=== PATIENT | female | born 1950 | race Caucasian/White ===

== ENCOUNTER 2017-04-16 20:55 | Emergency (ER) | payer OTHER ==
[~2017-04-16] VITALS: Ht 167.6 cm; Wt 80.6 kg
[~2017-04-16 20:55] MED LIST: DEPAKOTE500 MG PO; MEDROL; MEDROL 2 MG TAB2 MG PO; MIRALAX17 GM PO; PERCOCET 5/31 TABLET PO; PROZAC40 MG PO; ROBAXIN; ROBAXIN500 MG; prilosec
[2017-04-16 21:54] LABS: HEMATOCRIT 42.2 % (36.0-46.0); MCH 30.3 PG (29.0-34.0); MCHC 32.7 G/DL (30.0-36.0); MCV 92.7 FL (83-99); MEAN PLAT.VOLUME 9.1 uM^3 (9.5-12.4); PLATELET COUNT 193 K/uL (156-360); RBC DIS.WIDTH-CV 13.2 % (11.8-14.6); RBC DIS.WIDTH-SD 44.5 % (39-53); RED BLOOD COUNT 4.55 M/uL (3.80-5.20)
[2017-04-16 22:01] LABS: INTER. NORMALIZED RATIO 0.9
[2017-04-16 22:03] LABS: CHLORIDE 106 mEq/L (99-109); SODIUM 142 mEq/L (136-147)
[2017-04-16 22:06] LABS: GLUCOSE 79 mg/dL (70-99)
[2017-04-16 22:07] LABS: ANION GAP 8 MEQ/L (2-14); TOTAL BILIRUBIN 0.3 mg/dL (0.0-1.0)
[2017-04-16 22:09] LABS: ALKALINE PHOSPHATASE 95 IU/L (3-129); GFR ESTIMATE (CALCULATED) > 59 mL/min/
[2017-04-16 22:10] LABS: UREA NITROGEN (BUN) 18 mg/dL (9-23)
[2017-04-16 22:11] LABS: DIRECT BILIRUBIN 0.1 mg/dL (0.0-0.3)
[2017-04-16 22:13] LABS: LIPASE 23 U/L (1.0-51.0)
[2017-04-16 22:29] LABS: ADD MIUA? YES; BILIRUBIN NEGATIVE; BLOOD SMALL; COLOR YELLOW ((YELLOW)); GLUCOSE (STRIP) NEGATIVE; KETONES NEGATIVE; LEUKOCYTES NEGATIVE; NITRITE NEGATIVE; PROTEIN (STRIP) NEGATIVE; SPECIFIC GRAVITY 1.015 (1.000-1.030); UROBILINOGEN 0.2 MG/DL (0.2-1.0)
[2017-04-16 22:31] LABS: BACTERIA NONE SEEN /HPF; EPITHELIAL CELLS RARE /HPF; MUCUS TRACE /LPF; RED BLOOD CELLS 0-5 /HPF (0-5); UCUL ADDED? NO; WHITE BLOOD CELLS 0-5 /HPF (0-5)
[2017-04-16 22:41] LABS: PTT 31.6 SEC (25-37)
[2017-04-16] MEDS ORDERED: MIRALAX119 GM PO (22:42)
[2017-04-16 23:07] VITALS: BP 126/58
== END 2017-04-16 23:18 | disposition home or self-care (01) ==
LOC: EME 20:55
PROVIDERS: Emergency Medicine
DX: R10.10 Upper abdominal pain, unspecified (principal); F17.200 Nicotine dependence, unspecified, uncomplicated
CPT/HCPCS: 74176; 80048; 80076; 81003; 83605; 83690; 85027; 85610; 85730; 87086; 99281; 99284